=== PATIENT | male | born 1950 | race Caucasian/White ===

== ENCOUNTER → 2018-05-12 13:49 | Outpatient (BNVA) | payer MEDICARE, SELFPAY | PROVIDERS: PCP Internal Medicine; Visit Provider Student in an Organized Health Care Education/Training Program | DX: I25.10 Atherosclerotic heart disease of native coronary artery without angina pectoris (principal); I10 Essential (primary) hypertension; Z87.891 Personal history of nicotine dependence | CPT/HCPCS: 99204 ==

== ENCOUNTER 2018-05-21 01:26 | Outpatient (CLI) | payer MEDICARE, SELFPAY ==
--- NOTE | 2018-05-21 07:48 | DI.US_ITS ---
SYMPTOM/DIAGNOSIS: SCREENING FOR AAA, Z87.891, PERSONAL H/O NICOTINE DEPENDENCE AORTA ULTRASOUND: Sonographic evaluation of the abdominal aorta was performed. There is a distal abdominal aortic aneurysm. Maximum diameters are 3.6 cm. transverse by 3.4 cm. AP. IMPRESSION: 3.5 cm. distal abdominal aortic aneurysm.
== END 2018-05-21 01:46 ==
PROVIDERS: PCP Internal Medicine; Visit Provider Student in an Organized Health Care Education/Training Program
DX: I71.4 Abdominal aortic aneurysm, without rupture (principal); Z13.6 Encounter for screening for cardiovascular disorders; Z87.891 Personal history of nicotine dependence
CPT/HCPCS: 76706

== ENCOUNTER 2019-04-18 16:17 | Outpatient (REF) | payer MEDICARE, SELFPAY ==
[2019-04-18 21:09] LABS: Anion Gap 11.5 mmol/L (3-11); BUN 14 mg/dL (7-18); CO2 23.5 mmol/L (21.0-32.0); CREATININE 1.11 mg/dL (0.70-1.30); Calcium 8.9 mg/dL (8.5-10.1); Calculated LDL 39 mg/dL; Chloride 108 mmol/L (98-107); Cholesterol 181 mg/dL (<200); Glucose 97 mg/dL (74-106); HDL Cholesterol 64 mg/dL (40-60); Potassium 3.9 mmol/L (3.5-5.1); Sodium 143 mmol/L (136-145); Triglyceride 392 mg/dL (<150)
== END 2019-04-18 16:37 ==
LOC: NCHCN 16:17
PROVIDERS: PCP Internal Medicine; Visit Provider Internal Medicine
DX: I25.10 Atherosclerotic heart disease of native coronary artery without angina pectoris (principal); E66.3 Overweight
CPT/HCPCS: 80048; 80061

== ENCOUNTER → 2020-01-24 13:28 | Outpatient (BNVA) | payer MEDICARE, SELFPAY | PROVIDERS: PCP Internal Medicine; Referring Provider Internal Medicine; Visit Provider Internal Medicine Cardiovascular Disease | DX: I25.10 Atherosclerotic heart disease of native coronary artery without angina pectoris (principal); I10 Essential (primary) hypertension; Z95.818 Presence of other cardiac implants and grafts | CPT/HCPCS: 99203 ==

== ENCOUNTER 2020-11-12 19:31 | Outpatient (REF) | payer MEDICARE, SELFPAY ==
[2020-11-12 17:47] LABS: Anion Gap 15.3 mmol/L (3-11); BUN 14 mg/dL (7-18); CO2 21.7 mmol/L (21.0-32.0); CREATININE 1.1 mg/dL (0.70-1.30); Calcium 8.7 mg/dL (8.5-10.1); Chloride 105 mmol/L (98-107); Cholesterol 185 mg/dL (<200); Glucose 105 mg/dL (74-106); HDL Cholesterol 68 mg/dL (40-60); Potassium 4.1 mmol/L (3.5-5.1); Sodium 142 mmol/L (136-145); Triglyceride 417 mg/dL (<150)
[2020-11-12 18:05] LABS: LDL CHOLESTEROL 55 mg/dL (<100)
== END 2020-11-12 19:32 | disposition home or self-care (01) ==
LOC: NCHCN 19:31
PROVIDERS: PCP Internal Medicine; Visit Provider Internal Medicine
DX: I25.10 Atherosclerotic heart disease of native coronary artery without angina pectoris (principal); E66.3 Overweight; Z95.5 Presence of coronary angioplasty implant and graft
CPT/HCPCS: 80048; 80061; 83721

== ENCOUNTER 2021-12-12 11:16 | Outpatient (REF) | payer MEDICARE, SELFPAY ==
[2021-12-12 14:59] LABS: Anion Gap 6.6 mmol/L (3-11); BUN 24 mg/dL (7-18); CO2 27.4 mmol/L (21.0-32.0); CREATININE 1.4 mg/dL (0.70-1.30); Calcium 8.9 mg/dL (8.5-10.1); Chloride 106 mmol/L (98-107); Estimated GFR 49.96 (mL/min/1.73m2); Glucose 117 mg/dL (74-106); Potassium 3.8 mmol/L (3.5-5.1); Sodium 140 mmol/L (136-145)
== END 2021-12-12 11:17 | disposition home or self-care (01) ==
LOC: NCHCN 11:16
PROVIDERS: PCP Internal Medicine; Visit Provider Internal Medicine
DX: I25.10 Atherosclerotic heart disease of native coronary artery without angina pectoris (principal); E66.3 Overweight
CPT/HCPCS: 80048

== ENCOUNTER → 2022-02-10 11:35 | Outpatient (BNVA) | payer MEDICARE, SELFPAY | PROVIDERS: PCP Internal Medicine; Referring Provider Internal Medicine; Visit Provider Internal Medicine Cardiovascular Disease | DX: R06.02 Shortness of breath (principal); I25.2 Old myocardial infarction; Z95.5 Presence of coronary angioplasty implant and graft; I25.10 Atherosclerotic heart disease of native coronary artery without angina pectoris; I10 Essential (primary) hypertension | CPT/HCPCS: 93005; 99214 ==

== ENCOUNTER 2022-02-10 11:38 | Outpatient (CLI) | payer MEDICARE, SELFPAY ==
--- NOTE | 2022-02-10 11:38 | RT.EKG_ITS ---
APPROVED REPORT Exam: Resting ECG Reason for Exam: CAD Patient Location: O HR:69 bpm ECG Measurements Heart Rate 69 AXIS RI 195 P 71 QRSd 100 QRS 28 QT 410 T 56 QTc 440 Conclusion Sinus rhythm...normal P axis, V-rate 50- 99 Low voltage, extremity leads...all extremity leads <0.5mV Baseline wander in lead(s) III Otherwise normal
== END 2022-02-10 11:39 | disposition home or self-care (01) ==
LOC: DI.CARD 11:39
PROVIDERS: PCP Internal Medicine; Visit Provider Internal Medicine Cardiovascular Disease
DX: I10 Essential (primary) hypertension (principal); I25.10 Atherosclerotic heart disease of native coronary artery without angina pectoris
CPT/HCPCS: 93010

== ENCOUNTER 2022-02-26 19:56 | Outpatient (REF) | payer MEDICARE, SELFPAY ==
[2022-02-26 15:16] LABS: Anion Gap 10.1 mmol/L (3-11); BUN 19 mg/dL (7-18); CO2 26.9 mmol/L (21.0-32.0); CREATININE 1.4 mg/dL (0.70-1.30); Calcium 8.7 mg/dL (8.5-10.1); Chloride 105 mmol/L (98-107); Glucose 103 mg/dL (74-106); Potassium 4.8 mmol/L (3.5-5.1); Sodium 142 mmol/L (136-145)
== END 2022-02-26 19:57 | disposition home or self-care (01) ==
LOC: NCHCN 19:56
PROVIDERS: PCP Internal Medicine; Visit Provider Internal Medicine
DX: N18.30 Chronic kidney disease, stage 3 unspecified (principal)
CPT/HCPCS: 80048

== ENCOUNTER → 2023-02-10 13:29 | Outpatient (BNVA) | payer MEDICARE, SELFPAY | PROVIDERS: PCP Internal Medicine; Visit Provider Internal Medicine Cardiovascular Disease | DX: I25.10 Atherosclerotic heart disease of native coronary artery without angina pectoris (principal); I10 Essential (primary) hypertension | CPT/HCPCS: 99214 ==

== ENCOUNTER → 2023-02-23 01:44 | Outpatient (CLI) | payer MEDICARE, SELFPAY ==
--- NOTE | 2023-02-23 07:45 | DI.NM_ITS ---
APPROVED REPORT Exam: Pharmacologic Patient Location: Out-Patient Room/Bed: Stress Nurse: Anuradha Almeida RN Ordering Provider:DEONDRE IRVIND, Contact Number: BMI: 23.80 Baseline Rhythm: Sinus Bradycardia Indications: MILLER, CAD Medical History Medical History: HTN, CAD Cardiac Medications: Pantoprazole, nitroglycerin, losartan, atorvastatin, aspirin Allergies: lisinopril, niacin Cardiac Risk Factors: Family Hx, HTN, HLD, CVD, Former smoker Previous Cardiac Procedures: None Pretest Chest Pain Characteristics: None Exercise History: Sedentary Physical Disabilities: None Lung Sounds: Clear to auscultation Heart Sounds: Regular Stress Test Details Test: Exercise stress converted to pharmacologic stress due to failure to obtain a diagnostic stress test. Nuclear Acquisition: Rest Tc-99m/Stress Tc-99m 1 day Rest Isotope: Tc-99m Sestamibi. Dose: 10 Date: 02/23/2023 Injection Time: 0930 Stress Isotope: Tc-99m Sestamibi. Dose: 31 Date: 02/23/2023 Injection Time: 1112 HR Resting HR Supine: 56 bpm Max Heart Rate (APMHR): 147.139382 bpm Resting HR Standin bpm Target HR (85% APMHR): 124.381777 bpm Max HR Achieved: 129 bpm % of APMHR: 87.76 Recovery HR: 94 bpm HR response to stress: Normal HR response to stress BP Resting BP Supine: 178/90 mmHg Resting BP Standin/86 mmHg Max BP: 218/128 mmHg Recovery BP: 182/96 mmHg BP response to stress: Abnormal hypertensive response to stress. ECG Resting ECG: Sinus Bradycardia Ectopy: none Stress ECG: Sinus Tachycardia ST Change: No significant ST segment changes noted Arrhythmia: None Recovery ECG: Sinus Rhythm Recovery ST Change: No significant ST segment changes noted Recovery Arrhythmia: VPC Comment: frequent PVCs, couplet, triplet Clinical Reason for Termination: Fatigue Stress Symptoms: Dyspnea Exercise duration: 2 min37 sec Highest Stage Reached: Stage 1: 1.7 mph at 10% grade. Exercise capacity: 4.64 METs Garcia Treadmill Score: 1.4 Rate Pressure Product: 32222 Stress ECG Conclusion 1. Resting electrocardiogram was within normal limits 2. Patient underwent testing using a combination of low-level exercise and pharmacologic stress with regadenoson 3. Workload achieved was 4.64 METS, 88% of maximal predicted heart rate for age 4. Electrocardiographic portion of the test was negative for myocardial ischemia 5. PVCs were seen 6. See MPI report Garcia Treadmill Score is 1.4 which is Moderate risk. Stress Test Summary STAGE Time (mins) Speed (mph) Grade (%) HR BP SpO2 SYMPTOMS METS Supine 56 178/90 94 Standing 75 158/86 94 1 3 1.7 10 124 202/88 4.5 1 min post Lexiscan injection 128 218/82 94 SOB 3 min post Lexiscan injection 102 218/128 95 SOB 6 min post Lexiscan injection 94 182/96 96 SOB Resolved Patient transitioned after 2:37 exercise to lesxiscan due to SOB/Fatigue. MPI Conclusion Myocardial perfusion is normal. There is no ischemia or evidence of prior infarction EF is 48% with normal wall motion
[2023-02-23] MEDS: Regadenoson 0.4 MG/5 ML SYR IVP (11:20)
== END ==
PROVIDERS: PCP Internal Medicine; Visit Provider Internal Medicine Cardiovascular Disease
DX: I25.10 Atherosclerotic heart disease of native coronary artery without angina pectoris (principal)
CPT/HCPCS: 78452; 93016; 93018; 93017; J2785

== ENCOUNTER 2023-02-24 16:48 | Outpatient (REF) | payer MEDICARE, SELFPAY ==
[2023-02-24 20:50] LABS: HCT 41.8 % (40.0-50.0); HGB 14.3 g/dL (13.5-17.5); MCHC 34.2 % (32.0-36.0); MCV 97 fL (80-95); MPV 9.7 fL (8.0-11.0); Platelet Count 194 10^3/uL (130-400); RBC 4.33 10^6/uL (4.36-5.78); RDW 12.7 % (11.8-14.1); RDW-SD 44.8 fL; WBC 6.47 10^3/uL (4.4-10.8)
[2023-02-24 21:00] LABS: ALT 51 U/L (16-63); AST 54 U/L (15-37); Albumin 3.8 g/dL (3.4-5.0); Alkaline Phosphatase 99 U/L (46-116); Anion Gap 9.9 mmol/L (3-11); BUN 20 mg/dL (7-18); Bilirubin, Total 0.5 mg/dL (0.2-1.0); CO2 26.1 mmol/L (21.0-32.0); CREATININE 1.2 mg/dL (0.70-1.30); Calcium 8.6 mg/dL (8.5-10.1); Chloride 105 mmol/L (98-107); Estimated GFR 63.85 (mL/min/1.73m2); Glucose 86 mg/dL (74-106); Potassium 4.4 mmol/L (3.5-5.1); Sodium 141 mmol/L (136-145); Total Protein 6.9 g/dL (6.4-8.2)
[2023-02-24 21:24] LABS: NT-proBNP 100 pg/mL (<300)
== END 2023-02-24 16:49 | disposition home or self-care (01) ==
LOC: NCHCN 16:48
PROVIDERS: PCP Internal Medicine; Visit Provider Internal Medicine
DX: R06.09 Other forms of dyspnea (principal); R10.13 Epigastric pain; I25.10 Atherosclerotic heart disease of native coronary artery without angina pectoris; N18.30 Chronic kidney disease, stage 3 unspecified; Z00.00 Encounter for general adult medical examination without abnormal findings
CPT/HCPCS: 80053; 85027; 83880

== ENCOUNTER → 2023-05-06 02:28 | Outpatient (CLI) | payer MEDICARE, SELFPAY | PROVIDERS: PCP Internal Medicine; Visit Provider Internal Medicine | DX: R06.09 Other forms of dyspnea (principal) | CPT/HCPCS: 93306 ==

== ENCOUNTER 2023-09-07 21:00 | Outpatient (REF) | payer MEDICARE, SELFPAY ==
[2023-09-07 21:05] LABS: Abs Immature Grans 0.01 10^3/uL (0.0-0.06); Absolute Basophil Count 0.03 10^3/uL (0.0-0.2); Absolute Eosinophil Count 0.25 10^3/uL (0.0-0.7); Absolute Lymphocyte Count 0.95 10^3/uL (1.2-3.4); Absolute Monocyte Count 0.42 10^3/uL (0.1-0.8); Absolute Neutrophil Count 3.12 10^3/uL (1.2-6.7); Basophils % 0.6; Eosinophils % 5.2; HCT 44.3 % (40.0-50.0); HGB 15.2 g/dL (13.5-17.5); Immature Grans % 0.2; Lymphocytes % 19.9; MCH 31.5 pg (27.0-33.0); MCHC 34.3 % (32.0-36.0); MCV 92 fL (80-95); MPV 9.9 fL (8.0-11.0); Monocytes % 8.8; Neutrophils % 65.3; Platelet Count 230 10^3/uL (130-400); RBC 4.82 10^6/uL (4.36-5.78); RDW 14.1 % (11.8-14.1); RDW-SD 46.8 fL; WBC 4.78 10^3/uL (4.4-10.8)
[2023-09-09 12:21] LABS: Syphilis Serology (RPR) Negative (Negative)
== END 2023-09-07 21:01 | disposition home or self-care (01) ==
LOC: LBN 21:00
PROVIDERS: PCP Internal Medicine; Visit Provider Physician Assistant
DX: L30.8 Other specified dermatitis (principal); N18.30 Chronic kidney disease, stage 3 unspecified; I25.10 Atherosclerotic heart disease of native coronary artery without angina pectoris; Z13.89 Encounter for screening for other disorder
CPT/HCPCS: 85025; 86592

== ENCOUNTER 2023-09-28 10:53 | Outpatient (REF) | payer MEDICARE, SELFPAY ==
--- NOTE | 2023-09-28 15:15 | SKI_PTH ---
PATIENT: Jalil Blackwood LOC: [facility]#:[id number] AGE/SX: 73/M ROOM: RE09/28/[address]: Gianluca Tariq : 1950 BED: DIS: 09/28/2023 SPEC #: [id number] RECD: 09/29/23 12:01 STATUS: HUMBLE MALHOTRA #: [id number] KARLIE: 09/28/23 15:[address]: Gianluca Tariq DEPT: Surgical Specimen RECD BY: Shruthi Mckeon ENTERED: 09/29/23 12:03 SP TYPE: GENOVEVA WEBER DR: Jamil Bennett Tissues: 1 - SKIN BIOPSY(SHAVE/PUNCH) Procedures: SKIN LEVEL 4 Comments: [id number]
== END 2023-09-28 10:54 | disposition home or self-care (01) ==
LOC: NCHCN 10:53
PROVIDERS: PCP Internal Medicine; Visit Provider Family Medicine
DX: L43.2 Lichenoid drug reaction (principal)
CPT/HCPCS: 88305

== ENCOUNTER → 2023-12-17 13:08 | Outpatient (BNVA) | payer MEDICARE, SELFPAY | PROVIDERS: PCP Family Medicine; Referring Provider Family Medicine; Visit Provider Physical Therapy Assistant | DX: Z12.11 Encounter for screening for malignant neoplasm of colon (principal) ==

== ENCOUNTER 2024-01-22 07:44 | Day surgery (SDC) | payer MEDICARE, SELFPAY ==
--- NOTE | 2024-01-21 19:54 | HPE_ITS ---
Assessment and Plan Assessment and plan (1) Encounter for screening colonoscopy: Status: Acute Assessment and plan: I reviewed the plan for a screening colonoscopy with Jalil as well as the risks and benefits of the proceedure. I think he has a good understanding of what to expect. He had the chance to ask questions and he was able to provide informed consent. History of Present Illness History of Present Illness Chief Complaint: screening colonoscopy Narrative: 73 y/o male with history of CAD (s/p stents), HTN, GERD and asthma presents for colonoscopy screening pre-op. His last screening was in 2013 and was remarkable for diverticulosis. He denies a family history of colon cancer. He denies any changes in bowel habits including bloody or black tarry stools, abdominal pain, diarrhea or constipation. He denies constitutional symptoms. He denies chest pain, palpitations, dyspnea or dyspnea with exertion. He denies prior history or family history of adverse reactions or complications with anesthesia. The patient denies any history of stroke, [place], seizures, bleeding or clotting disorders. He has metal implanted in his right wrist. Since his last office encounter, there have been no significant interval changes to history or physical. [facility] All Active Problems (Updated 01/21/24 @ 19:54 by Esdras Milian MD) Encounter for screening colonoscopy (Acute) GERD (gastroesophageal reflux disease) (Chronic) Hypertension (Chronic) Coronary artery disease (Chronic) Surgical History History of surgery on right wrist Pins placed, per pt. History of colonoscopy Social History Smoking/Tobacco Use Status: Former Tobacco Use Smoking risk assessment performed?: Yes Alcohol Intake: current Alcohol Intake frequency: a few times a week Alcohol type: hard liquor Drug use: Occasionally Substance use type: marijuana Housing: house Do you feel safe at home: Yes Do you feel safe in your relationship?: Yes Meds Allergies and Home Medications Allergies Allergy/AdvReac Type Severity Reaction Status Date / Time lisinopril Allergy cough Verified 01/22/24 07:58 niacin AdvReac Mild flushing Verified 01/22/24 07:58 Home Medications ?Medication ?Instructions ?Recorded ?Confirmed ?Type aspirin 81 mg tablet,delayed 81 mg PO DAILY 11/03/12 01/22/24 History release (Aspir-) atorvastatin 40 mg tablet (Lipitor) 40 mg PO DAILY 11/03/12 01/22/24 History ibuprofen 200 mg tablet (Ibuprofen 200 mg PO PRN PRN 11/03/12 12/17/23 History IB) nitroglycerin 0.4 mg sublingual 0.4 mg sublingual PRN PRN 11/03/12 12/17/23 History tablet fluticasone propionate 50 50 mcg NS BID 08/01/13 01/22/24 History mcg/actuation nasal spray,suspension (Flonase) losartan 25 mg tablet 25 mg PO DAILY 08/01/13 01/22/24 History pantoprazole 20 mg tablet,delayed 20 mg PO DAILY 05/12/18 01/21/24 History release Exam Const General: cooperative, healthy appearing and not in acute distress Neck Neck: normal visual inspection, no lymphadenopathy and supple Resp Effort & Inspection: normal respiratory effort Auscultation: clear to auscultation bilaterally Cardio Jugular venous pressure: no JVD Rate: regular rate Rhythm: regular rhythm Heart Sounds: S1 normal and S2 normal GI Inspection: normal to inspection Palpation: soft, no guarding, no hernias and nontender Percussion: normal to percussion Auscultation: normal bowel sounds Neuro General: patient alert, patient awake and patient oriented x3 Psych Appearance: grossly normal
--- NOTE | 2024-01-21 19:56 | PDOC.DSDIS_ITS ---
Date of service: 01/22/24 Time of Service: 10:24 Discharge Plan Disposition Patient Disposition: Home Condition: Good Discharge Details Reason For Visit: screening colonoscopy Attending Provider: Esdras Milian Primary Care Provider: Gianluca Tariq Home Meds and New Rx's Prescriptions: Continued pantoprazole 20 mg tablet,delayed release (DR/EC) 20 mg PO DAILY losartan 25 MG tablet 25 mg PO DAILY fluticasone propionate [Flonase] 16 GM spray,suspension 50 mcg NS BID atorvastatin [Lipitor] 40 MG tablet 40 mg PO DAILY aspirin [Aspir-81] 81 MG tablet,delayed release (DR/EC) 81 mg PO DAILY ibuprofen [Ibuprofen IB] 200 MG tablet 200 mg PO PRN PRN nitroglycerin 0.4 MG tablet, sublingual 0.4 mg Sublingual PRN PRN Discontinued bisacodyl [Dulcolax (bisacodyl)] 5 mg tablet,delayed release (DR/EC) 5 mg PO ONCE Qty: 4 0RF Rx Instructions: Take per colonoscopy instructions provided by ordering providers office polyethylene glycol 3350 17 gram/dose powder 17 g PO ONCE Qty: 238 0RF Rx Instructions: Take per colonoscopy instructions provided by ordering providers office Discharge Instructions Instructions: Diverticulosis Additional Instructions: Jalil, we were able to complete your colonoscopy today without much difficulty. Your prep was excellent, and I could see everything fine. You do, in fact, have diverticulosis like we talked about beforehand. As I mentioned, I hope these never cause you any symptoms. I did attach a little bit of information here about basic practices for diverticular disease. Otherwise, your colonoscopy was negative. Because no polyps were found, you will be good for 10 years. The modern recommendations for screening colonoscopies suggest the procedure up to age 85. I would encourage you to keep a dialogue with your primary care physician, and see how you are feeling in 10 years. If you are up for another colonoscopy at that point, I be more than happy to help. 1. If tolerated, consume a soft, low fiber diet for 1-2 days. 2[address] Do not drive, drink alcohol, operate machinery, make critical decisions, or do activities that require coordination or balance for 24 hours. 3. Because air was put into your colon during the procedure, expelling air from your rectum (passing gas or farting) is normal. 4. You may not have a bowel movement for 1-3 days because of the colonoscopy prep. This is normal. 5. Go directly to the emergency room if you notice any of the following: Develop chills (warm to touch), or if you have a thermometer and your temperature is above 101 Difficulty breathing or difficultly swallowing Persistent vomiting Severe abdominal pain, other than gas cramps Severe chest pain Black, tarry stools Any bleeding ? exceeding one tablespoon 6. Call your physician if the site where your intravenous was started becomes red, swollen, painful, and warm to touch. 7. Your physician has reviewed your pre-procedure medications. Please continue t o take those medications as previously ordered. You will be given specific information/education regarding any changes to your medications before leaving. Activity:: Activity as Tolerated Diet:: As Tolerated Discharge Orders Discharge Orders: Discharge Order (Routine); Ordered 01/21/24 Ordered By: Esdras Milian DS: Diagnosis Discharge Diagnosis (1) Encounter for screening colonoscopy: Status: Acute Asessment and Plan: Negative screening colonoscopy
--- NOTE | 2024-01-21 19:58 | W.COLOREPORT ---
Date of service: 01/22/24 Time of Service: 10:26 Colonoscopy Report Date of procedure: 01/22/24 Pre-op diagnosis general: screening colonoscopy Post-op diagnosis procedure note: other (Diverticulosis) Procedure: colonoscopy Surgeon: Esdras Milian Anesthesia Type: General:No Airway Estimated blood loss (mL): 0 Pathology: none sent Complications: None Disposition: same day Indications: Jalil is a 73 year old man who needs his next screening colonscopy Prep: Miralax/Dulcolax Procedure Start Time: 10:01 Procedure End Time: 10:15 Retraction Time: 6 Findings: Diverticulosis Procedure Description: After the induction of anesthesia, and with the patient in left lateral decubitus position, I began by performing an external anorectal exam.? Perineum and skin were normal, as was the anal verge.? There are mild external hemorrhoids.? Next, I performed a digital rectal exam.? I did not appreciate any abnormal findings.? Next, I advanced a colonoscope into the rectal vault.? I performed retroflexion.? I this appeared normal.? Using insufflation, I then advanced the colonoscope beyond the rectal folds and into the sigmoid colon before advancing towards the cecum.? There was sigmoid diverticulosis.? The scope was noted to be in the cecum by identification of the ileocecal valve and appendiceal orifice.? I then began withdrawing the colonoscope using repeated irrigation as necessary for full evaluation of the colonic mucosa. There were a few diverticula in the ascending colon. Once the scope was withdrawn to the level of the rectum, great care was taken to examine portions of the rectal folds.? Finally, the scope was withdrawn and the patient was brought to the same-day surgery recovery unit as the anesthetic wore off. ?The findings and instructions were shared with the patient prior to discharge. Oliver Bowel Prep Oliver Bowel Prep Right Colon: 3 Left Colon: 3 Transverse Colon: 3 Total Score: 9
[2024-01-22 08:00] VITALS: BP 177/101; PULSE 86; RESP 18; TEMP 36.4; O2SAT 96
[2024-01-22] MEDS: Lactated Ringers 1,000 ML 80 ML IV (08:16)
--- NOTE | 2024-01-22 09:35 | W.ANESPRE ---
General Info Date of Service Date Performed: 01/22/24 Height: 5 ft 7 in Weight: 66.4 kg Body Mass Index (BMI): 22.9 Surgical Procedure: Operation Date: 01/22/24 09:05 Proposed Procedure Side Surgeon p Colonoscopy Esdras Milian MD Actual Procedure Side Surgeon p Colonoscopy Not Applicable Esdras Milian MD Pre-Op Diagnosis Post-Op Diagnosis SCREENING,HX OF DIVERTICULOSIS Meds Allergies and Home Medications Allergies Allergy/AdvReac Type Severity Reaction Status Date / Time lisinopril Allergy cough Verified 01/22/24 07:58 niacin AdvReac Mild flushing Verified 01/22/24 07:58 Home Medication ?Medication ?Instructions ?Recorded aspirin 81 mg tablet,delayed 81 mg PO DAILY 11/03/12 release (Aspir-) atorvastatin 40 mg tablet (Lipitor) 40 mg PO DAILY 11/03/12 ibuprofen 200 mg tablet (Ibuprofen 200 mg PO PRN PRN 11/03/12 IB) nitroglycerin 0.4 mg sublingual 0.4 mg sublingual PRN PRN 11/03/12 tablet fluticasone propionate 50 50 mcg NS BID 08/01/13 mcg/actuation nasal spray,suspension (Flonase) losartan 25 mg tablet 25 mg PO DAILY 08/01/13 pantoprazole 20 mg tablet,delayed 20 mg PO DAILY 05/12/18 release Current Visit Medications: Current Medications Generic Name Dose Route Start Last Admin Trade Name Freq PRN Reason Stop Dose Admin Ringer's Solution 1,000 mls @ 80 mls/hr 01/22/24 06:00 01/22/24 08:16 IV 02/20/24 23:59 80 mls/hr INFUSION CECILIA Administration IV Miscellaneous Supplies 1 each 01/22/24 06:00 Iv Access IV 02/20/24 23:59 DIRECTED CECILIA Ondansetron HCl 4 mg 01/21/24 19:59 Ondansetron 4 Mg/2 Ml Vial IVP 02/20/24 19:58 Q4H PRN PRN Nausea / Vomiting Sodium Chloride 0 ml 01/22/24 06:00 Normal Saline Flush 10 Ml Syr IV 02/20/24 23:59 PRN PRN Sodium Chloride 0 ml 01/22/24 06:00 Normal Saline 10 Ml Vial IJ 02/20/24 23:59 DIRECTED PRN Sterile Water 0 ml 01/22/24 06:00 Water,Injection,Sterile 10 Ml Vial IJ 02/20/24 23:59 DIRECTED PRN PFSH Active Problems Active Problems: Problem Status Onset Code Encounter for screening colonoscopy Acute Z12.11 GERD (gastroesophageal reflux disease) Chronic K21.9 Hypertension Chronic I10 Coronary artery disease Chronic I25.10 Surgical History Surgical History History of surgery on right wrist Pins placed, per pt. History of colonoscopy Tobacco Smoking/Tobacco Use Status: Former Tobacco Use Alcohol Alcohol Intake: current Alcohol intake frequency: a few times a week Alcohol type: hard liquor Substance Use Substance use: Occasionally Substance use type: marijuana Vital Signs and Lab Results Vital Signs Most Recent Vital Signs in EMR: Most Recent Vital Signs Temp Pulse Resp BP Pulse Ox 36.4 C L 86 18 177/101 H 96 01/22/24 08:00 01/22/24 08:00 01/22/24 08:00 01/22/24 08:00 01/22/24 08:00 Lab Results Blood Type / Crossmatch: No Data to Display Complete Blood Count: No Data to Display Complete Metabolic Panel: No Data to Display Liver Function Panel: No Data to Display Coagulation Panel: No Data to Display Cardiac Panel: No Data to Display Arterial Blood Gas: No Data to Display Venous Blood Gas: No Data to Display Pancreas Panel: No Data to Display Thyroid Panel: No Data to Display Infectious Disease: No Data to Display Blood Cultures: No Data to Display Toxicology Panel: No Data to Display Anesthesia Assessment and Plan Anesthesia History Personal History: No History of Anesthesia Complications Family History: No Family History of Anesthesia Complications Exercise Tolerance Exercise Tolerance: Metabolic Equivalents>4 Pertinent Negatives Pertinent Negatives: No Symptoms of GERD Cardiac & Pulmonary Exam Cardiac Exam: Normal S1/S2 Heart Sounds Pulmonary Exam: Clear Bilateral Breath Sounds Implantable Cardiac Device Does patient have a Pacemaker or an ICD?: No Airway Exam Known Difficult Airway: No Mallampati Class: 2 Mouth Opening: Normal (> 3cm) Thyromental Distance: Greater than 3 cm Facial Hair: Full Evans Neck Range of Motion: Full ROM Neck Circumference: Normal Teeth Condition: Generalized Poor Dentition ASA Classification ASA Score: ASA 3 Emergency Case?: No NPO Status NPO Status: NPO Clears >2 hours, Solids >8 hours Anesthesia Plan Resuscitation Status: Full Code Anesthesia Technique: General Anesthesia Airway Planned: Natural Airway Monitors Used: Standard Monitors
[2024-01-22 09:36] VITALS: BMI 22.9
[2024-01-22 10:21] VITALS: BP 135/82; PULSE 86; RESP 18; TEMP 36.1; O2SAT 98
--- NOTE | 2024-01-22 10:31 | W.ANESPOSTOP ---
Postoperative Evaluation Date, Time and Location Date Performed: 01/22/24 Time Performed: 10:31 Patient Location: Day Surgery Unit Vital Signs Most Recent Imported Vital Signs: Most Recent Vital Signs Temp Pulse Resp BP Pulse Ox 36.1 C L 86 18 135/82 98 01/22/24 10:21 01/22/24 10:21 01/22/24 10:21 01/22/24 10:21 01/22/24 10:21 Pain Score Most Recent Pain Score: Most Recent Pain Score Pain Level 0 01/22/24 10:21 Assessment Mental Status: Awake (Alert & Oriented to Patient Baseline) Airway and Respiratory Function: Patent airway with normal (patient baseline) respiratory exam Cardiovascular Function: Hemodynamically Stable Hydration Status: Adequately Hydrated Nausea & Vomiting: No Nausea or Vomiting Pain: Pt. Denies Any Pain Peripheral Nerve Block: Patient did not receive a nerve block
[2024-01-22 10:55] VITALS: BP 175/97; PULSE 85; RESP 18; TEMP 36.3; O2SAT 95
== END 2024-01-22 11:20 | disposition home or self-care (01) ==
LOC: SUR 07:44
PROVIDERS: PCP Family Medicine; Visit Provider Surgery
PROC: 0DJD8ZZ Inspection of Lower Intestinal Tract, Via Natural or Artificial Opening Endoscopic (ICD-10-PCS; CPT 45378; principal; 2024-01-22 09:00)
DX: Z12.11 Encounter for screening for malignant neoplasm of colon (principal); K57.30 Diverticulosis of large intestine without perforation or abscess without bleeding; K64.8 Other hemorrhoids
CPT/HCPCS: G0121; J2001; J2704

== ENCOUNTER → 2024-02-29 13:10 | Outpatient (BNVA) | payer MEDICARE, SELFPAY | PROVIDERS: PCP Family Medicine; Visit Provider Internal Medicine Cardiovascular Disease | DX: I25.10 Atherosclerotic heart disease of native coronary artery without angina pectoris (principal); I10 Essential (primary) hypertension | CPT/HCPCS: 99214 ==

== ENCOUNTER 2024-07-11 17:54 | Outpatient (REF) | payer MEDICARE, SELFPAY ==
[2024-07-11 21:48] LABS: ALT 40 U/L (16-63); AST 40 U/L (15-37); Albumin 3.9 g/dL (3.4-5.0); Alkaline Phosphatase 102 U/L (46-116); Anion Gap 7.3 mmol/L (3-11); BUN 10 mg/dL (7-18); CO2 28.7 mmol/L (21.0-32.0); Calcium 9.3 mg/dL (8.5-10.1); Chloride 106 mmol/L (98-107); Estimated GFR 78.98 (mL/min/1.73m2); Glucose 93 mg/dL (74-106); LDL CHOLESTEROL 38 mg/dL (<100); Potassium 4.5 mmol/L (3.5-5.1); Sodium 142 mmol/L (136-145); Total Protein 6.8 g/dL (6.4-8.2)
[2024-07-12 00:47] LABS: Bilirubin, Total 0.36 mg/dL (0.2-1.0)
== END 2024-07-11 17:55 | disposition home or self-care (01) ==
LOC: NCHCN 17:54
PROVIDERS: PCP Family Medicine; Visit Provider Family Medicine
DX: I25.10 Atherosclerotic heart disease of native coronary artery without angina pectoris (principal)
CPT/HCPCS: 80053; 83721

== ENCOUNTER 2024-09-29 13:39 | Outpatient (CLI) | payer MEDICARE, SELFPAY ==
--- NOTE | 2024-09-29 13:30 | RT.EKG_ITS ---
APPROVED REPORT Exam: Resting ECG Reason for Exam: CAD Patient Location: O HR:86 bpm ECG Measurements Heart Rate 86 AXIS AK 197 P 80 QRSd 95 QRS -48 QT 365 T 60 QTc 437 Conclusion Sinus rhythm...normal P axis, V-rate 50- 99 left anterior fascicular block...axis(240,-40), S>R II III aVF Borderline low voltage, extremity leads...all extremity leads <0.6mV
== END 2024-09-29 13:40 | disposition home or self-care (01) ==
LOC: DI.CARD 13:44
PROVIDERS: PCP Family Medicine; Referring Provider Family Medicine; Visit Provider Internal Medicine Cardiovascular Disease
DX: I25.10 Atherosclerotic heart disease of native coronary artery without angina pectoris (principal); I44.4 Left anterior fascicular block; I10 Essential (primary) hypertension
CPT/HCPCS: 93010

== ENCOUNTER → 2024-09-29 13:39 | Outpatient (BNVA) | payer MEDICARE, SELFPAY | PROVIDERS: PCP Family Medicine; Referring Provider Family Medicine; Visit Provider Internal Medicine Cardiovascular Disease | DX: I25.10 Atherosclerotic heart disease of native coronary artery without angina pectoris (principal); I10 Essential (primary) hypertension | CPT/HCPCS: 99213; 93005 ==